=== PATIENT | male | born 1970 | race Caucasian/White ===

== ENCOUNTER 2016-08-29 08:51 | Inpatient (IN) | payer OTHER ==
[2016-08-29] VITALS (147 sets, daily range): BP systolic 157–186; BP diastolic 81–100; PULSE 72–97; TEMP 98.3–101.8; O2SAT 77–100
[~2016-08-29] VITALS: Ht 172.7 cm; Wt 114.1 kg
[2016-08-29] MEDS ORDERED: AFRIN NASAL SPR15 ML (11:06)
[2016-08-29] MEDS ORDERED: ROBITUSSIN DM 105 ML (11:06)
[2016-08-29] MEDS ORDERED: MICARDIS HCT 251 TAB PO (11:07)
[2016-08-29] MEDS ORDERED: ZYRTEC 10MG10 MG PO (11:07)
[2016-08-29] MEDS ORDERED: NORVASC 10MG10 MG PO (11:07)
[2016-08-29 12:38] LABS: CALCIUM 7.2 mg/dL (8.4-10.2); CREATININE, serum 2.82 mg/dL (0.66-1.25); POTASSIUM 3.5 mmol/L (3.4-5.0)
[2016-08-29 15:14] LABS: ARTERIAL BLD GAS O2 SATURATION 92.4 % (92-100); ARTERIAL BLD GAS TCO2 CT 18.3; ARTERIAL BLOOD GAS BASE EXCESS -6.3 (-2-2); ARTERIAL BLOOD GAS HCO3 17.4 meq/L (22-26); ARTERIAL BLOOD GAS PHT 7.39 C (7.35-7.45); ARTERIAL BLOOD GAS PO2 66.1 mmHg (80-100); ARTERIAL BLOOD GAS PO2T 66.1 (80-100); ARTERIAL BLOOD GAS pH 7.39 (7.35-7.45); OXYHEMOGLOBIN 91.5 %
[2016-08-29 15:15] LABS: ATS? YES
[2016-08-29 21:13] LABS: VENOUS BLOOD GAS BE -0.3 (-4-4); VENOUS BLOOD GAS SAO2 87.8 % (60-80)
[2016-08-29 21:15] LABS: ARTERIAL BLD GAS O2 SATURATION 87.8 % (92-100); ARTERIAL BLOOD GAS BASE EXCESS -0.3 (-2-2); ARTERIAL BLOOD GAS HCO3 23.3 meq/L (22-26); ARTERIAL BLOOD GAS PO2 52.2 mmHg (80-100); ARTERIAL BLOOD GAS pH 7.45 (7.35-7.45)
[2016-08-29 21:16] LABS: ALLEN TEST NO; ATS? NO
[2016-08-29 23:40] LABS: CREATININE, serum 2.67 mg/dL (0.66-1.25); POTASSIUM 3.4 mmol/L (3.4-5.0)
[2016-08-30] VITALS: BP 119/72; PULSE 80; TEMP 100.5
[2016-08-30 00:23] LABS: PH 5 (5-8); SQUAMOUS EPITHELIAL 0-2 /hpf; URINE APPEARANCE Hazy; URINE BACTERIA Rare /hpf; URINE BILIRUBIN Negative (NEGATIVE); URINE BLOOD 3+ (NEGATIVE); URINE COLOR Yellow; URINE GLUCOSE Negative (NEGATIVE); URINE KETONE Negative (NEGATIVE); URINE RBC >50 /hpf; URINE UROBILINOGEN Negative (NEGATIVE)
[2016-08-30 04:00] VITALS: BP 121/70; PULSE 82; TEMP 99.3
[2016-08-30 04:58] LABS: ARTERIAL BLD GAS O2 SATURATION 90.4 % (92-100); ARTERIAL BLOOD GAS BASE EXCESS 4.7 (-2-2); ARTERIAL BLOOD GAS HCO3 27.9 meq/L (22-26); ARTERIAL BLOOD GAS PO2 58.1 mmHg (80-100); ARTERIAL BLOOD GAS pH 7.51 (7.35-7.45); OXYHEMOGLOBIN 89.6 %
[2016-08-30 04:59] LABS: ATS? NO
[2016-08-30 06:08] LABS: BASO % 0.2 % (0.0-2.0); GRAN # 2.6 (1.4-6.5); GRAN % 61.5 % (42.2-75.2); LYMPH # 1.4 (1.2-3.4); LYMPH % 32.4 % (20.0-51.0); MEAN CELL VOLUME 85 fl (80.0-100.0); MEAN CORPUSCULAR HGB CONC 34 g/dl (33.0-37.0); MEAN PLATELET VOLUME 10.4 fl (7.4-10.4); MONO # 0.2 (0.1-0.6); MONO % 5.7 % (1.7-9.3); PLATELET COUNT 116 K/mm3 (130-400); RED BLOOD COUNT 3.31 M/mm3 (4.20-5.60); WHITE BLOOD COUNT 4.2 K/mm3 (4.8-10.8)
[2016-08-30 06:13] LABS: HEMATOCRIT 28.2 % (42.0-52.0); HEMOGLOBIN 9.5 g/dl (13.5-18.0); MEAN CORPUSCULAR HEMOGLOBIN 29 pg (27.0-31.0)
[2016-08-30 06:17] LABS: ALBUMIN 2.4 gm/dL (3.5-5.0); BILIRUBIN,TOTAL 0.6 mg/dL (0.0-1.0); CALCIUM 6.4 mg/dL (8.4-10.2); CREATININE, serum 2.81 mg/dL (0.66-1.25); MAGNESIUM 1.5 mg/dL (1.6-2.3); PHOSPHOROUS 3.2 mg/dL (2.5-4.5)
[2016-08-30 06:34] LABS: TROPONIN-I 0.065 ng/mL (0.000-0.034)
[2016-08-30 06:35] LABS: POTASSIUM 2.8 mmol/L (3.4-5.0)
[2016-08-30 06:51] LABS: BILIRUBIN,DIRECT 0.4 mg/dL (0.0-0.4)
[2016-08-30 07:14] LABS: INR 1.5 (0.8-3.0); PARTIAL THROMBOPLASTIN TIME 31.2 SECONDS (26.0-37.0); PROTHROMBIN TIME 16.3 SECONDS (9.7-12.8)
[2016-08-30 08:00] VITALS: BP 161/81; PULSE 80; TEMP 100
[2016-08-30 12:00] VITALS: BP 163/89; PULSE 75; TEMP 100.4
[2016-08-30 16:00] VITALS: BP 150/72; PULSE 81; TEMP 99.4
[2016-08-30 20:15] VITALS: BP 174/82; PULSE 74; TEMP 99.6
[2016-08-30 22:07] LABS: POTASSIUM 3.1 mmol/L (3.4-5.0)
[2016-08-31] VITALS (7 sets, daily range): BP systolic 142–162; BP diastolic 74–78; PULSE 84–104; TEMP 99–101.8
[2016-08-31 04:39] LABS: ARTERIAL BLD GAS O2 SATURATION 77.6 % (92-100); ARTERIAL BLD GAS TCO2 CT 30.6; ARTERIAL BLOOD GAS BASE EXCESS 5.7 (-2-2); ARTERIAL BLOOD GAS HCO3 29.4 meq/L (22-26); ARTERIAL BLOOD GAS PHT 7.49 C (7.35-7.45); ARTERIAL BLOOD GAS pH 7.49 (7.35-7.45); OXYHEMOGLOBIN 76.7 %
[2016-08-31 04:40] LABS: ALLEN TEST NO; ATS? NO
[2016-08-31 05:03] LABS: ARTERIAL BLOOD GAS PO2 59.7 mmHg (80-100); ARTERIAL BLOOD GAS pH 7.47 (7.35-7.45)
[2016-08-31 05:04] LABS: ARTERIAL BLD GAS O2 SATURATION 89.6 % (92-100); ARTERIAL BLD GAS TCO2 CT 25.7; ARTERIAL BLOOD GAS BASE EXCESS 1.1 (-2-2); ARTERIAL BLOOD GAS HCO3 24.6 meq/L (22-26)
[2016-08-31 05:05] LABS: ALLEN TEST NO; ATS? NO
[2016-08-31 05:06] LABS: BASO % 0.2 % (0.0-2.0); EOS % 0.5 % (0-4.0); GRAN # 4.2 (1.4-6.5); GRAN % 74.8 % (42.2-75.2); LYMPH % 18.6 % (20.0-51.0); MEAN CELL VOLUME 86 fl (80.0-100.0); MEAN CORPUSCULAR HGB CONC 34 g/dl (33.0-37.0); MONO # 0.3 (0.1-0.6); PLATELET COUNT 109 K/mm3 (130-400); RED BLOOD COUNT 3.46 M/mm3 (4.20-5.60); REDCELL DISTRIBUTION WIDTH-CV 13.2 % (11.5-14.5); WHITE BLOOD COUNT 5.6 K/mm3 (4.8-10.8)
[2016-08-31 05:07] LABS: HEMATOCRIT 29.8 % (42.0-52.0); MEAN CORPUSCULAR HEMOGLOBIN 29 pg (27.0-31.0)
[2016-08-31 05:18] LABS: CALCIUM 6.4 mg/dL (8.4-10.2); CREATININE, serum 3.43 mg/dL (0.66-1.25); MAGNESIUM 1.7 mg/dL (1.6-2.3); PHOSPHOROUS 3.3 mg/dL (2.5-4.5); POTASSIUM 3.2 mmol/L (3.4-5.0)
[2016-08-31 05:45] LABS: TROPONIN-I 0.113 ng/mL (0.000-0.034)
[2016-08-31 05:49] LABS: INR 1.4 (0.8-3.0); PROTHROMBIN TIME 16.2 SECONDS (9.7-12.8)
[2016-08-31 05:52] LABS: PARTIAL THROMBOPLASTIN TIME 31.4 SECONDS (26.0-37.0)
[2016-08-31 09:28] LABS: ARTERIAL BLD GAS O2 SATURATION 85.3 % (92-100); ARTERIAL BLD GAS TCO2 CT 28.7; ARTERIAL BLOOD GAS BASE EXCESS 3.1 (-2-2); ARTERIAL BLOOD GAS HCO3 27.5 meq/L (22-26); ARTERIAL BLOOD GAS PHT 7.44 C (7.35-7.45); ARTERIAL BLOOD GAS pH 7.44 (7.35-7.45); OXYHEMOGLOBIN 84.1 %
[2016-08-31 09:29] LABS: ABG VENTILATOR TIDAL VOLUME 420 mL; ATS? NO
[2016-08-31 10:11] LABS: PH 5 (5-8); SQUAMOUS EPITHELIAL 0-2 /hpf; URINE APPEARANCE Clear; URINE BACTERIA Rare /hpf; URINE BILIRUBIN Negative (NEGATIVE); URINE BLOOD 3+ (NEGATIVE); URINE COLOR Straw; URINE GLUCOSE Negative (NEGATIVE); URINE KETONE Negative (NEGATIVE); URINE RBC >50 /hpf; URINE UROBILINOGEN Negative (NEGATIVE)
[2016-08-31 11:08] LABS: BRONCH WASH FLUID MONONUCLEAR 0 % (0-75)
[2016-08-31 11:09] LABS: BRONCH WASH POLY - PMN 100 % (0-25)
[2016-09-01 11:45] LABS: VENOUS BLOOD GAS SITE CENTRAL LINE
== END 2016-08-31 14:25 | disposition short-term general hospital (02) | DRG 163 ==
LOC: MEDICAL 08:51 → ICU 15:02
PROVIDERS: Family Medicine; Internal Medicine; Internal Medicine Pulmonary Disease
PROC: 0BH18EZ Insertion of Endotracheal Airway into Trachea, Via Natural or Artificial Opening Endoscopic (ICD-10-PCS; principal; 2016-08-29)
PROC: 0B948ZZ Drainage of Right Upper Lobe Bronchus, Via Natural or Artificial Opening Endoscopic (ICD-10-PCS; 2016-08-29)
PROC: 0B968ZZ Drainage of Right Lower Lobe Bronchus, Via Natural or Artificial Opening Endoscopic (ICD-10-PCS; 2016-08-29)
PROC: 0B9B8ZZ Drainage of Left Lower Lobe Bronchus, Via Natural or Artificial Opening Endoscopic (ICD-10-PCS; 2016-08-29)
PROC: 5A1945Z Respiratory Ventilation, 24-96 Consecutive Hours (ICD-10-PCS; 2016-08-29)
DX: J18.9 Pneumonia, unspecified organism (principal); J96.01 Acute respiratory failure with hypoxia; N17.9 Acute kidney failure, unspecified; M62.82 Rhabdomyolysis; E87.3 Alkalosis; R04.2 Hemoptysis; I10 Essential (primary) hypertension; E83.51 Hypocalcemia; E83.39 Other disorders of phosphorus metabolism; I25.10 Atherosclerotic heart disease of native coronary artery without angina pectoris
CPT/HCPCS: 99223-AI; 99231-AI; C1751; J0360; J1644; J1940; J1956; J2543; J2704; J3010; J3370; J3475; J3480; J7030; J7050; J7070